=== PATIENT | female | born 1990 | race Hispanic/Latino ===

== ENCOUNTER 2018-11-18 08:03 | Day surgery (SDC) | payer OTHER, SELFPAY ==
[2018-11-18] VITALS (8 sets, daily range): BP systolic 106–130; BP diastolic 58–73; PULSE 55–68; RESP 10–18; TEMP 36.4–37.2; O2SAT 96–100; BMI 33.4
--- NOTE | 2018-11-18 | PATH_ITS ---
[facility] Accession Number: [id number] . 01 Material submitted: . PART A: CERVICAL BIOPSY AT 12:00 PART B: CERVICAL BIOPSY AT 9:00 PART C: CERVICAL BIOPSY AT 3:00 PART D: CERVICAL BIOPSY AT 6:00 PART E: DEEP CERVICAL BIOPSY PART F: ENDOCERVICAL CURETTINGS . 01 Clinical history: . E: 2 PIECES . 02 Diagnosis: A. - C. Biopsies, Cervix At 12 O'Clock, 9 O'Clock, And 3 O'Clock: Cervical tissue from the transformation zone, negative for atypia in all three specimens. . D. Cervical Biopsy At 6 O'Clock: High-grade squamous intraepithelial lesion (SELENE 2) involving tissue from the transformation zone. . E. Deep Cervical Biopsies: Endocervical tissue, negative for atypia. . F. Endocervical Curettings: Small fragments of endocervical epithelium, negative for atypia. Multiple fragments of inactive endometrium with stromal changes suggestive of progestational effect, consistent with origin in lower uterine segment, negative for atypia. BFI/11/20/2018 . 02 Comment: The changes present in part D appear to explain the abnormalities noted on the cervical cytology preparation taken from this patient on 09/12/18 ([id number]). . 02 Electronically signed: . Mitchel Mcleod MD, Pathologist NPI- [id number] . 01 Gross description: . (A) Received in formalin, labeled cervical biopsy @ 12 o'clock, is an unoriented piece of cervical tissue (1.7 x 0.8 x 0.2 cm) with rodriguez-pink, smooth shiny mucosa and a rodriguez-pink smooth resection margin. No nodules, masses or lesions are identified. The resection margin is inked black. Serially sectioned and entirely submitted in cassette A1. (B) Received in formalin, labeled cervical biopsy @ 9 o'clock, is an unoriented piece of cervical tissue (1.3 x 0.8 x 0.2 cm) with rodriguez-white smooth shiny mucosa and a pale maciel finely granular resection margin. No nodules, masses or lesions are identified. The resection margin is inked black. Serially sectioned and entirely submitted in cassette B1. (C) Received in formalin, labeled cervical biopsy @ 3 o'clock, is an unoriented piece of rodriguez-pink smooth shiny semi-translucent cervical tissue (0.8 x 0.5 x 0.1 cm). No nodules, masses or lesions are identified. The resection margin is difficult to identify; therefore, the tissue is inked black. Trisected and entirely submitted in cassette C1. (D) Received in formalin, labeled cervical biopsy @ 6 o'clock, is an unoriented piece of cervical tissue (1.6 x 0.8 x 0.3 cm) with rodriguez-pink smooth shiny mucosa and a pale maciel finely granular resection margin. No nodules, masses or lesions are identified. The resection margin is inked black. Serially sectioned and entirely submitted in cassette A1. (E) Received in formalin, labeled two pieces deep cervical biopsy, are two unoriented pieces of cervical tissue (piece #1-1.2 x 0.5 x 0.2 cm; piece #2-2.2 x 1.0 x 0.3 cm) with rodriguez-pink smooth shiny mucosa and rodriguez-maciel finely granular resection margins. No nodules, masses or lesions are identified. The tissue cannot be oriented; therefore the resection margins are inked black. Piece #1 is trisected and entirely submitted in cassette E1, and piece #2 is serially sectioned and entirely submitted in cassettes E2-E3. (F) Received in formalin, labeled endocervical curettings, are multiple fragments of red-brown tissue (2.5 x 1.0 by less than 0.1 cm in aggregate). Filtered and entirely submitted in cassette F1. ([id number]) /MRV . 02 Pathologist provided ICD-10: N87.1 . 02 CPT . 780844, [id number], 097658, 827930, [id number], [id number] Performed at: [address] [facility] [address] [place] [address], [place], [place] [id number] MD Simeon Vasquez MD Phone: [phone] Performed at: [facility] [address] [place], [place] [id number] MD Denise Curry MD Phone: [phone]
[2018-11-18] MEDS: LACTATED RINGERS 1,000 ML 100 ML IV (08:46)
--- NOTE | 2018-11-18 09:59 | PM.GYNHP.1 ---
History of Present Illness Reason for admission: other (High-grade dysplasia of the cervix) Narrative: Evangelina Christian is a 28 year old female with ASCUS cannot rule out high-grade dysplasia high-risk HPV positive here for LEEP procedure [facility] Surgical History (Updated 11/18/18 @ 10:01 by Breanna Chin MD) H/O dilation and curettage (Inactive) Social History household members: spouse Social History household members: spouse Meds Home Medications Medication Instructions Recorded Confirmed Type levonorgestrel [Mirena] 11/18/18 History Review of Systems Review of Systems All systems reviewed & are unremarkable except as noted in HPI and below Exam Vital Signs (past 8 hours): - 11/18/18 08:25 Temperature 98.9 F Pulse Rate 61 Respiratory Rate 15 Blood Pressure 115/70 Pulse Oximetry 100 Oxygen Delivery Method Room Air Narrative Exam Narrative: HEENT exam within normal limits. Lungs are clear to auscultation and percussion. Heart is regular rate and rhythm no S3-S4 or murmurs. Abdomen is soft, nontender. pelvic deferred for exam under anesthesia. Extremities without edema and nontender. Assessment & Plan (1) H/O dilation and curettage: Current visit: Yes Status: Inactive (2) ASCUS favoring dysplasia: Problem details: Plan is for LEEP procedure. consent was gone over the patient. Risks for difficulty getting and pre term delivery discussed. Risks that she may continue to have abnormal Pap smears. Risk of bleeding discussed. Consent form was signed and questions answered. Current visit: Yes Status: Acute (3) High risk human papilloma virus (HPV) infection of cervix: Current visit: Yes Status: Acute
--- NOTE | 2018-11-18 10:06 | P.HPOB_ITS ---
History of Present Illness Reason for admission: other (High-grade dysplasia of the cervix) Narrative: Evangelina Christian is a 28 year old female with ASCUS cannot rule out high-grade dysplasia high-risk HPV positive here for LEEP procedure [facility] Surgical History (Updated 11/18/18 @ 10:01 by Breanna Chin MD) H/O dilation and curettage (Inactive) Social History household members: spouse Social History household members: spouse Meds Home Medications Medication Instructions Recorded Confirmed Type levonorgestrel [Mirena] 11/18/18 History Review of Systems Review of Systems All systems reviewed & are unremarkable except as noted in HPI and below Exam Vital Signs (past 8 hours): - 11/18/18 08:25 Temperature 98.9 F Pulse Rate 61 Respiratory Rate 15 Blood Pressure 115/70 Pulse Oximetry 100 Oxygen Delivery Method Room Air Narrative Exam Narrative: HEENT exam within normal limits. Lungs are clear to auscultation and percussion. Heart is regular rate and rhythm no S3-S4 or murmurs. Abdomen is soft, nontender. pelvic deferred for exam under anesthesia. Extremities without edema and nontender. Assessment & Plan (1) H/O dilation and curettage: Current visit: Yes Status: Inactive (2) ASCUS favoring dysplasia: Problem details: Plan is for LEEP procedure. consent was gone over the patient. Risks for diffi culty getting and pre term delivery discussed. Risks that she may continue to have abnormal Pap smears. Risk of bleeding discussed. Consent form was signed and questions answered. Current visit: Yes Status: Acute (3) High risk human papilloma virus (HPV) infection of cervix: Current visit: Yes Status: Acute
--- NOTE | 2018-11-18 10:06 | PM.PREOP ---
Pre-operative Note Interval Note History & Physical reviewed/Exam performed by Physician: Yes Changes to H&P: No
--- NOTE | 2018-11-18 10:22 | SUR.OPER ---
Lithotomy on padded OR bed, head on pillow, arms secured on padded arm boards at <90 degrees abduction. Legs secured in padded yellow fins stirrups.
[2018-11-18] MEDS: BUPIVACAINE 0.5% W/ EPI (PF) VIAL 30 ML INJ (10:43)
[2018-11-18] MEDS: POTASSIUM IODIDE/IODINE 473 ML SOLUTION TOP (10:46)
--- NOTE | 2018-11-18 11:08 | PM.OP.1 ---
Operative Date/Time/Diagnoses Date of procedure: 11/18/18 Time of procedure: 11:08 Pre-op diagnosis: ASCUS high-risk HPV Pap smear with positive high-risk HPV Post-op diagnosis: same Procedure & Clinicians Procedure: LEEP procedure with ECC Same procedure as scheduled: Yes Indications: High-risk HPV with ASCUS high-grade Pap smear Surgeon: Breanna Chin Click Yes if Unassisted: Yes Anesthesia Type: General Operative Notes Findings: Normal exam under anesthesia. IUDs strings in place before and after the procedure Closure Type: not applicable Specimen(s): other (LEEP divided up in to 4 quadrants and a deep biopsy) Estimated Blood Loss (mL): 50 Blood products transfused: none Procedure in detail: Patient was brought to the operating room she underwent general. She was placed in low stirrups. A coated bivalve speculum was placed into the vagina. The cervix was injected with 0.5% Marcaine with epinephrine. A coated single-tooth tenaculum was placed on the anterior lip of the cervix. The cervix was stained with Lugol's. The loop set at 60 W of cutting was used to remove the entire squamocolumnar junction. This was done in 4 separate sections to avoid cutting the IUD strings. A slightly deeper section was taken of the endocervical canal. The tissue was cauterized external to the LEEP with ball cautery to extend the treatment zone. The cervix was treated with Monsel's. The patient went to recovery room in good condition. Counts of instruments and sponges were correct. The tissue was sent for pathology. Complications: none Condition: stable Disposition: same day surgery Plan for aftercare: Follow-up in 2 weeks call for heavy bleeding.
[2018-11-18] MEDS: fentaNYL 100 MCG/2 ML INJ 50 MCG IV (11:20)
== END 2018-11-18 12:03 | disposition home or self-care (01) ==
PROVIDERS: PCP Family Medicine; Visit Provider Specialist
PROC: 0UBC7ZZ Excision of Cervix, Via Natural or Artificial Opening (ICD-10-PCS; CPT 57522; principal; 2018-11-18 09:45)
DX: N87.1 Moderate cervical dysplasia (principal); B97.7 Papillomavirus as the cause of diseases classified elsewhere
CPT/HCPCS: 57522; J1100; J2250; J2405; J2704; J3010